=== PATIENT | female | born 1955 | race Caucasian/White ===

== ENCOUNTER → 2017-03-16 | Outpatient (CLI) | payer BC ==
[~2017-03-16] MED LIST: ASA325 MG PO; CALTRATE-600 D600 MG PO; CELEBREX200 MG PO; CULTURELLE1 CAP PO; FEOSOL-DPS325 MG PO; OXY IR DPS5 MG PO; SENOKOT S1 TAB PO; THERA1 EACH PO; TYLENOL DPS325 MG PO; ULTRAM DPS50 MG PO; XARELTO10 MG PO; ZOCOR DPS20 MG PO
== END | disposition home or self-care (01) ==
LOC: RAD.S 08:15
DX: Z12.31 Encounter for screening mammogram for malignant neoplasm of breast (principal)